=== PATIENT | female | born 1955 | race Caucasian/White ===

== ENCOUNTER 2016-11-30 01:12 | Emergency (ER) | payer BC ==
--- NOTE | 2016-11-30 01:32 | EDM.PDOC ---
ED HPI GENERAL MEDICAL PROBLEM - General Chief Complaint: Upper Extremity Injury/Pain Stated Complaint: RIGHT ARM CHECK Time Seen by Provider: 11/30/16 01:30 Source of Information: Reports: Patient - History of Present Illness INITIAL COMMENTS - FREE TEXT/NARRATIVE: HISTORY AND PHYSICAL: History of present illness: Patient fell on outstretched hand, there was a ladder on the ground and she tripped over it, she has pain in the right thumb area after falling on outstretched hand no swelling or bruising No head injury or loss of consciousness No fever nausea vomiting chills sweats pain is 4 out of 10 nonradiating no pain over radial or ulnar distribution Review of systems: As per history of present illness and below otherwise all systems reviewed and negative. Past medical history: As per history of present illness and as reviewed below otherwise noncontributory. Surgical history: As per history of present illness and as reviewed below otherwise noncontributory. Social history: No reported history of drug or alcohol abuse. Family history: As per history of present illness and as reviewed below otherwise noncontributory. Physical exam: HEENT: Atraumatic, normocephalic, pupils reactive, negative for conjunctival pallor or scleral icterus, mucous membranes moist, throat clear, neck supple, nontender, trachea midline. Lungs: Clear to auscultation, breath sounds equal bilaterally, chest nontender. Heart: S1S2, regular, negative for clicks, rubs, or JVD. Abdomen: Soft, nondistended, nontender. Negative for masses or hepatosplenomegaly. Negative for costovertebral tenderness. Pelvis: Stable nontender. Genitourinary: Deferred. Rectal: Deferred. Extremities: Atraumatic, negative for cords or calf pain. Neurovascular unremarkable. Right upper extremity unaffected above the wrist full range of painless movement of the wrist no snuffbox tenderness tender along the lateral base otherwise neurovascularly intact no open lesion no redness warmth or swelling Neuro: Awake, alert, oriented. Cranial nerves II through XII unremarkable. Cerebellum unremarkable. Motor and sensory unremarkable throughout. Exam nonfocal. Diagnostics: []Right hand 3 views Therapeutics: []Splint Rest ice ibuprofen Impression: []Right hand pain/sprain Definitive disposition and diagnosis as appropriate pending reevaluation and review of above. Right Arm Pain Score (Numeric/FACES): 10 - Related Data Allergies Allergy/AdvReac Type Severity Reaction Status Date / Time No Known Allergies Allergy Verified 11/30/16 01:26 Home Meds: Home Meds Aspirin 81 mg PO DAILY 11/30/16 [History] Gabapentin [Neurontin] 300 mg PO ASDIRECTED 11/30/16 [History] Hydrochlorothiazide [Hydrochlorothiazide] 25 mg PO DAILY 11/30/16 [History] Metoprolol Succinate 100 mg PO DAILY 11/30/16 [History] Potassium Chloride [Potassium Chloride] 10 mg PO DAILY 11/30/16 [History] Review of Systems - Review of Systems Review Of Systems: ROS reveals no pertinent complaints other than HPI. ED EXAM, GENERAL - Physical Exam Exam: See Below Course - Vital Signs Last Recorded V/S: Last Vital Signs Temp 37.0 C 11/30/16 01:21 Pulse 73 11/30/16 01:21 Resp 18 11/30/16 01:21 BP 135/76 11/30/16 01:21 Pulse Ox 98 11/30/16 01:21 - Orders/Labs/Meds Orders: Active Orders 24 hr Category Date Time Status Hand Comp Min 3V Rt [CR] Stat Exams 11/30/16 01:29 Taken Departure - Departure Time of Disposition: 02:05 Disposition: Home, Self-Care 01 Condition: Good Clinical Impression: Contusion, Sprain - Discharge Information Forms: ED Department Discharge Additional Instructions: Splint Ice 20 minute intervals 3 times daily 7-10 days Ibuprofen 400 mg 3 times daily 7-10 days Return if symptoms persist or worsen Follow-up with primary care in 2 weeks The following information is given to patients seen in the emergency department who are being discharged to home. This information is to outline your options for follow-up care. We provide all patients seen in our emergency department with a follow-up referral. The need for follow-up, as well as the timing and circumstances, are variable depending upon the specifics of your emergency department visit. If you don't have a primary care physician on staff, we will provide you with a referral. We always advise you to contact your personal physician following an emergency department visit to inform them of the circumstance of the visit and for follow-up with them and/or the need for any referrals to a consulting specialist. The emergency department will also refer you to a specialist when appropriate. This referral assures that you have the opportunity for follow-up care with a specialist. All of these measure are taken in an effort to provide you with optimal care, which includes your follow-up. Under all circumstances we always encourage you to contact your private physician who remains a resource for coordinating your care. When calling for follow-up care, please make the office aware that this follow-up is from your recent emergency room visit. If for any reason you are refused follow-up, please contact the emergency department at and asked to speak to the emergency department charge nurse. - My Orders Last 24 Hours: My Active Orders 11/30/16 01:29 Hand Comp Min 3V Rt [CR] Stat - Assessment/Plan Last 24 Hours: My Active Orders 11/30/16 01:29 Hand Comp Min 3V Rt [CR] Stat
[2016-11-30 02:27] VITALS: BP 123/71
--- NOTE | 2016-12-01 13:23 | CR ---
EXAM DATE: 11/30/16 PATIENT'S AGE: 61 Patient: SARA VÁZQUEZ Facility: [place], [place] Site . Site : [id number] Study: XRay Extremity Right [id number]/9/2017 1:54:39 AM Ordering Physician: Crispin Xie Final Report: INDICATION: Trauma. Pain. TECHNIQUE: Three views of the right hand. FINDINGS: No acute fracture or dislocation. Scattered degenerative changes of the wrist and small joints of the fingers. IMPRESSION: No acute fracture or dislocation of the right hand or visualized wrist. Dictated by Yahir Carcamo MD @ 11/30/2016 1:57:47 AM Dictated by: Yahir Carcamo MD @ 11/30/2016 01:57:52 (Electronic Signature) Report Signed by Proxy. [facility]
== END 2016-11-30 02:20 | disposition home or self-care (01) ==
LOC: MW.ED 01:12
DX: S63.91XA Sprain of unspecified part of right wrist and hand, initial encounter (principal); S60.221A Contusion of right hand, initial encounter; Z79.82 Long term (current) use of aspirin; Z79.899 Other long term (current) drug therapy; W11.XXXA Fall on and from ladder, initial encounter
CPT/HCPCS: 29125; 73130; 99283; L3807; 99282